=== PATIENT | female | born 1965 ===

== ENCOUNTER 2016-12-15 15:52 | Emergency (ER) | payer SELFPAY ==
[2016-12-15] MEDS ORDERED: Adacel (T-DAP) 0.5 ML VIAL ONE (16:03)
[2016-12-15] MEDS ORDERED: traMADol HCl 50 MG TAB ONE (16:40)
--- NOTE | 2016-12-15 17:35 | RAD ---
THREE VIEWS OF THE LEFT HAND 12/15/16 COMPARISON: None. HISTORY: Trauma, pain. FINDINGS: There is a fracture involving the volar base of the fifth middle phalanx. An associated 2 mm fractur e fragment is displaced proximally and anteriorly, extending into the region of the fifth proximal i nterphalangeal joint. IMPRESSION: Intra-articular mildly displaced fracture involving the volar base of the fifth middle phalanx. POS: [facility]
--- NOTE | 2016-12-15 17:37 | RAD ---
FRONTAL RADIOGRAPH CHEST THREE VIEWS LEFT RIBS 12/15/16 COMPARISON: None. HISTORY: Trauma, pain, fall. FINDINGS: Frontal radiograph chest demonstrates no pneumothorax, pleural fluid, focal consolidation, or alveol ar edema. Heart and mediastinal contours within normal limits. THREE VIEWS LEFT RIBS: No acute displaced left sided rib fracture seen. IMPRESSION: No radiographic evidence of acute cardiopulmonary disease or displaced left sided rib fracture. POS: [facility]
--- NOTE | 2016-12-15 17:38 | RAD ---
TWO VIEWS LEFT CLAVICLE 12/15/16 COMPARISON: None. HISTORY: Trauma, pain. FINDINGS: No widening of the AC or CC interspace. No evidence for clavicle fracture. IMPRESSION: No acute findings. POS: [facility]
== END 2016-12-15 16:44 | disposition home or self-care (01) ==
LOC: BURERS 15:52
DX: S23.41XA Sprain of ribs, initial encounter (principal); S80.812A Abrasion, left lower leg, initial encounter; S63.617A Unspecified sprain of left little finger, initial encounter; F17.210 Nicotine dependence, cigarettes, uncomplicated; W01.198A Fall on same level from slipping, tripping and stumbling with subsequent striking against other object, initial encounter
CPT/HCPCS: 90471; 90715